=== PATIENT | female | born 1985 | race Caucasian/White ===

== ENCOUNTER 2016-12-14 05:20 | Day surgery (SDC) | payer OTHER ==
[2016-12-12 11:23] VITALS: BMI 29.4
[~2016-12-14 05:20] MED LIST: BUPIVACAINE HCL/PF 0.5% (5MG/ML) 10 ML VIAL IJ ONE
--- NOTE | 2016-12-14 09:47 | HP ---
Past Medical History - Primary Care Physician PCP:: Anh Lewis - Admission Chief Complaint: 31 yrs [id number] , Lmp 11/19/16 is admitted for surgery for Rt Ovarian cyst . History of Present Illness: h/o Left ovarian cyst known to her since 2914, it was small , so surgery was not recommended . last few months she is feeling increasingly some discomfort so she was evaluated for pelvic pain pelvic sono on 07/21/16 ut 7.7cm, Rt ovary has 1 cm echogenic focus,Dermoid cyst versus hemorrhagic cyst ws suspected. Lt ovary has no discreete abnormality . 3 Months later Repeat sono on 10/10/16 Rt ovary has 3.2x3.5cm hypoechoic mass with 9mm calcific density, suggestive of Dermoid cyst Lt ovary 8.4x1.4 cm small multiple folliclles are noted 10/25/16 Pelvic MRI : ut 7.3x4.5x5.5cm . Lt Ovary 3.1x2.8 cm Rt ovary 3.6x3.7x3.6 cm tounded Rt adnexal mass , no appreciable fat content, eccentric calcification seen , as per MRI findings are not diagnostic of Dermoid cyst contraception none History Source: Patient, Medical Record Limitations to Obtaining History: No Limitations - Past Medical History MEAT MOLDER: No: CVA, Migraine, Seizure Cardiovascular: No: HTN, Murmur Pulmonary: No: Asthma Gastrointestinal: Yes: Constipation. No: Gastritis, GERD Hepatobiliary: No: Cholelithiasis, Cholecystitis Renal/: No: UTI Reproductive: Yes: Other (MH 28-30 days regula, moderte flow, pain managed by pain meds Pap 07/2016 NILM h/o Abn pap : in 2014, Colposcopy) ...: 6 ...Para: 1 ...Term: 1 (primary c/section , 2005, failure to dilate ) ...Spon : 1 ...Induced : 4 ...LMP: 11/19/16 Heme/Onc: No: Anemia Infectious Disease: Yes: HIV (neg on 11/10/16), STD's (h/o Chlamydia pos in 2012 treated . , Last gc/ct on 11/10/16 Neg), Other (h/o trichomoniasis on 2012) Psych: Yes: Depression (currently not on any meds) Endocrine: No: Diabetes Mellitus, Hypothyroidism - Past Surgical History Past Surgical History: Yes: (2005) Hx Myomectomy: No Hx Transabdominal Cerclage: No - Advance Directives Advance Directives: Yes: Health Care Proxy - Smoking History Smoking history: Current some day smoker Have you smoked in the past 12 months: Yes - Alcohol/Substance Use Hx Alcohol Use: Yes (weekends) History of Substance Use: reports: Cocaine, Tranquilizers (h/o taking Ecstacy & Rosa Tabs for mood elevation) Date of Last Use: 10/20/16 (in past 1 month or 3 months ) - Social History History of Recent Travel: No Home Medications - Allergies Allergies/Adverse Reactions: Allergies Allergy/AdvReac Type Severity Reaction Status Date / Time No Known Allergies Allergy Verified 12/14/16 09:01 - Home Medications Home Medications: Ambulatory Orders NK [No Known Home Medication] 12/12/16 Physical Exam-DRAG DOWN Vital Signs: Vital Signs Temperature 97.3 F L 12/14/16 09:01 Pulse Rate 79 12/14/16 09:01 Respiratory Rate 20 12/14/16 09:01 Blood Pressure 106/62 12/14/16 09:01 O2 Sat by Pulse Oximetry (%) 96 12/14/16 08:51 Constitutional: Yes: Well Nourished, Anxious, Other (nervous) Eyes: Yes: WNL HENT: Yes: WNL, Normocephalic Neck: Yes: WNL Cardiovascular: Yes: WNL, Regular Rate and Rhythm Respiratory: Yes: WNL, CTA Bilaterally Gastrointestinal: Yes: WNL, Normal Bowel Sounds, Soft. No: Distention, Vomiting ...Rectal Exam: Yes: WNL Renal/: Yes: WNL. No: CVA Tenderness - Left, CVA Tenderness - Right Pelvis: Yes: WNL External Genitalia: Yes: Normal Internal Exam Deferred: Yes Vaginal Exam: Yes: Normal Cervix: Yes: Normal Uterus: Yes: Normal, Freely Moveable, Anteverted Adnexa: Normal: Bilateral, Not Palpable: Bilateral (clinically Rt adnexa not palpable ) Breast(s): Yes: WNL. No: Mass Musculoskeletal: Yes: WNL Extremities: Yes: WNL. No: Calf Tenderness Edema: No Integumentary: Yes: WNL, Incision (pfannensteil incision), Tattoos Neurological: Yes: WNL, Alert, Oriented ...Motor Strength: WNL Psychiatric: Yes: WNL, Alert, Oriented Labs: Laboratory Tests 12/12/16 12/12/16 12/12/16 11:26 11:26 11:26 WBC 12.6 H RBC 5.11 Hgb 14.0 Hct 42.8 MCV 83.7 MCH 27.3 MCHC 32.7 Plt Count 260 Neutrophils % 79.3 Lymphocytes % 13.9 Monocytes % 5.5 Eosinophils % 1.0 Basophils % 0.3 INR 1.15 H Sodium 140 Potassium 4.4 Chloride 105 Carbon Dioxide 29 BUN 13 Creatinine 0.5 L Random Glucose 82 Calcium 9.0 Total Bilirubin 0.5 AST 11 L ALT 16 Beta HCG, Quant < 1.0 Urine Protein Urine Glucose (UA) 12/12/16 11:26 WBC RBC Hgb Hct MCV MCH MCHC Plt Count Neutrophils % Lymphocytes % Monocytes % Eosinophils % Basophils % INR Sodium Potassium Chloride Carbon Dioxide BUN Creatinine Random Glucose Calcium Total Bilirubin AST ALT Beta HCG, Quant Urine Protein Negative Urine Glucose (UA) Negative Problem List - Problem (1) Right ovarian cyst Code(s): N83.201 - UNSPECIFIED OVARIAN CYST, RIGHT SIDE Assessment/Plan 31 yrs , previous c/section with Rt Ovarian cyst suspected Dermoid cyst Plan Laproscopic Rt ovarian cystectomy ., possible Rt Salpingoopherectomy , possible exp lap if necessary pt is aware of r/b/a . ,
[2016-12-14] MEDS ORDERED: ONDANSETRON 4 MG/2 ML VIAL IVPUSH PRN (10:44)
[2016-12-14] MEDS ORDERED: oxyCODONE HCL 5 MG TABLET PO PRN (10:44)
[2016-12-14] MEDS ORDERED: PROMETHAZINE HCL 25 MG/1 ML VIAL IVPUSH PRN (10:44)
[2016-12-14] MEDS ORDERED: LACTATED RINGERS SOLUTION 1,000 ML IV SCH (10:45)
[2016-12-14] MEDS ORDERED: MIDAZOLAM HCL 2 MG/2 ML SINGLE DOSE VIAL ONE (10:57)
[2016-12-14] MEDS ORDERED: PROPOFOL 20 ML ONE (11:02)
[2016-12-14] MEDS ORDERED: ROCURONIUM BROMIDE 50 MG/5 ML VIAL ONE (11:02)
[2016-12-14] MEDS ORDERED: DEXAMETHASONE SOD PHOSPHATE 4 MG/1 ML VIAL ONE (11:12)
[2016-12-14] MEDS ORDERED: LIDOCAINE HCL/PF 2% SDV 5ML VIAL ONE (11:12)
[2016-12-14] MEDS ORDERED: KETOROLAC TROMETHAMINE 30 MG/1 ML VIAL ONE (11:12)
[2016-12-14] MEDS ORDERED: BUPIVACAINE HCL/PF 0.5% (5MG/ML) 10 ML VIAL ONE (11:26)
[2016-12-14] MEDS ORDERED: BUPIVACAINE HCL/PF 0.5% (5MG/ML) 10 ML VIAL IJ ONE (12:43)
[2016-12-14] MEDS ORDERED: NEOSTIGMINE METHYLSULFATE 0.5 MG/ML - 10 ML MDV ONE (12:43)
[2016-12-14] MEDS ORDERED: GLYCOPYRROLATE 0.2 MG/1 ML VIAL ONE (12:44)
[2016-12-14] MEDS ORDERED: IBUPROFEN 600 MG TABLET (FP) PO PRN (12:58)
[2016-12-14] MEDS ORDERED: ACETAMINOPHEN 325 MG TABLET (FP) PO PRN (12:58)
--- NOTE | 2016-12-14 13:13 | OP ---
Operative Note - Note: Operative Date: 12/14/16 Pre-Operative Diagnosis: Right ovarian cyst possible Dermoid cyst Operation: Laproscopic Rt Ovarian cystectomy Findings: Uterus normal Lt ube & ovary normal Rt ovary includes 3.6 x 3.7 cm cyst , while sepraring cyst wall cyst was punctured , slimy yellowish material drained . cyst wall seprated from ovarian cortex , irrigation was done with copious ampunt of saline rest of ovarian cortex normal . Surgeon: Anh Lewis Life Enrichment Assistant: Nikki Bird Anesthesiologist/PHARMACY STUDENT: Jenny Anand MD Anesthesia: General Specimens Removed: portion of Rt cyst wall Drains, Volume Out (mls): 100 (daniels jomar color ) Fluid Volume Replaced (mls): 1,000 (iv ancef 1 gm)
[2016-12-14] MEDS ORDERED: CLINDAMYCIN PHOSPHATE 600 MG/4 ML VIAL ONE (14:15)
[2016-12-14] MEDS ORDERED: oxyCODONE HCL 5 MG TABLET ONE (15:42)
[2016-12-14 16:22] VITALS: TEMP 97.8
[2016-12-14] MEDS ORDERED: IBUPROFEN 600 MG TABLET (FP) PO ONE (16:50)
[2016-12-14 17:50] VITALS: BP 120/70; PULSE 88
--- NOTE | 2016-12-15 13:59 | PATH ---
Surgical Pathology Report Patient Name: JULIANA ALMONTE [facility]. Rec. #: [id number] /Age/Gender: 1985 (Age: 31) / F Account: [id number] Location: [facility] Taken: 12/14/2016 Received: 12/14/2016 Reported: 12/15/2016 Physicians: Anh Lewis M.D. Specimen(s) Received PORTION OF RIGHT CYST WALL Clinical History Right ovarian cyst Cyst contents were slimy yellowish fluid, r/o dermoid cyst Final Diagnosis OVARY, RIGHT, CYST WALL, CYSTECTOMY: MATURE CYSTIC TERATOMA AND SEROUS CYSTADENOMA. Electronically Signed Saeed Roberto M.D. Gross Description Received in formalin labeled "portion of right cyst wall" is a 3.6 x 2.8 x 1.1 cm focally disrupted cyst. The outer surface of the cyst is pink-tariq with a 0.9 cm in length attached portion of an ovary. The inner lining of the cyst is smooth. No excrescences are identified. Also received within the same container is a 1.5 x 1.2 x 0.3 cm aggregate of tariq-pink soft tissue fragments. The cyst is serially sectioned and the specimen is entirely submitted in 5 cassettes as follows: 1- portion of ovary [id number]-[id number] submitted cyst; 5-separately received soft tissue fragments. 12/14/201612/14/2016
--- NOTE | 2016-12-15 15:33 | OP ---
DATE OF OPERATION: 12/14/2016 PREOPERATIVE DIAGNOSIS: Right ovarian cyst, possible dermoid cyst. POSTOPERATIVE DIAGNOSIS: Right ovarian cyst, possible dermoid cyst, pending pathology. OPERATION DONE: Laparoscopic right ovarian cystectomy. SURGEON: Sanchez Nuñez MD TAX MANAGER PUBLIC: Nikki Bird DO ANESTHESIOLOGIST: Jenny Anand MD ANESTHESIA: General. FINDINGS: This is a 31-year-old 6, para 1-0-5-1, LMP November 17, 2016, who was diagnosed by sonogram and by MRI to have a right ovarian cyst 3.6 x 3.7 cm, possible dermoid suspected with a calcification. test was negative. Beta hCG negative. DESCRIPTION OF PROCEDURE: The patient was taken to the operating room table and general anesthesia was given. She was placed in the modified lithotomy position. The abdomen, pubis, perineum and vagina were painted with Betadine and draped in the usual manner. A pelvic examination was done. The uterus was anteverted, normal size. The cervix was posterior. The adnexa could not be palpated. A weighted speculum was put in. The anterior lip of the cervix was held with a single- tooth tenaculum. The uterine cavity was sounded. It was 7 cm. The Zumi cannula was introduced into the uterine cavity. Then, the tenaculum and weighted speculum were removed. A Mathis catheter was placed. The position of the stirrups was readjusted, and the patient was placed in the supine position. Gloves were changed and we proceeded with a pelviscopy. A small incision was made into the umbilicus. A 5-mm trocar and cannula were introduced and CO2 was insufflated into the peritoneal cavity. Then, from the Right lower quadrant, another 5-mm trocar and cannula were introduced and the right- side ovarian cyst was seen. The left-side ovary and tube were normal. Then, a 11-mm trocar and cannula were introduced from the right lower quadrant. The uterus was normal. The cul-de-sac was normal. The left adnexa, tube and ovary were normal and the right tube was normal. The ovary was held with the ovarian ligament and was brought up, and the junction between the ovarian cyst and the rest of the cortex was found. In the antimesenteric border, an incision was made with cautery and with EndoShears. A plane was obtained between the ovarian cortex and the cyst. We tried to separate the cyst but while the cyst from the ovarian cortex, an accidental puncture occurred. Slimy, yellowish fluid came out which was drained. An attempt to separate the cyst wall was made by holding it with a [place] grasper and another blunt grasper. The cyst wall was from the cortex. Then, with a LigaSure, the cyst wall was cut off and irrigation was done. A bleeding point was cauterized with the LigaSure. Hemostasis was verified. Then, copious irrigation with normal saline was done, cul-de-sac and around the colon and bowels, gutters . The cyst wall was sent for pathologic examination. Then, the left lower quadrant trocar was removed and the Herb-Faiza device was introduced. to guide needle insertion with . Vicryl 0 suture & the peritoneum and the rectus sheath was closed with Vicryl 0 suture. The Herb-Faiza device was then removed. The rest of the trocar, the right lower quadrant trocar was removed. Gas was removed from the abdominal cavity. The umbilical trocar was removed. Marcaine was infiltrated in all three incisions. Then, subcutaneous tissue was approximated with 4-0 Biosyn, and the skin was approximated with Steri-Strips. Band-Aid dressing was applied. The Zumi cannula was removed. Urine output was 100 mL, and IV Ancef 1 g was given. SANCHEZ NUÑEZ M.D. [id number] MTDD
== END 2016-12-14 17:00 | disposition home or self-care (01) ==
LOC: JASU-SURG 05:20
PROVIDERS: ATTEND Obstetrics & Gynecology
PROC: 0UB04ZZ Excision of Right Ovary, Percutaneous Endoscopic Approach (ICD-10-PCS; principal; 2016-12-14 09:30)
DX: N83.201 Unspecified ovarian cyst, right side (principal)
CPT/HCPCS: 88307-TC; 94760

== ENCOUNTER 2018-01-13 19:45 | Emergency (ER) | payer OTHER ==
[2018-01-13 20:09] VITALS: BP 117/79; PULSE 93; TEMP 98.4; BMI 34.5
--- NOTE | 2018-01-13 20:30 | PDOC ---
History of Present Illness - General History Source: Patient Exam Limitations: No Limitations - History of Present Illness Initial Comments: 01/13/18 21:10 The patient is a 32-year-old female with past medical history significant for anxiety presents to the emergency department with swelling to the R. eye. The patient reports a history of intermittent swelling to the lips, eyes and lower extremity with unknown etiology, that resolves by itself. The patient states she had an episode of edema to the R. eye today, with mild relief with 25 mg x2 of Benadryl. Denies the use of new cream, soap, medication, pus or crusting around the eyes. Denies swelling to the lips or throat. The patient reports an additional concern of missed menstrual cycle; patient states she is 5 days late and is concerned that she might be . Allergies: NKA. 01/13/18 22:09 <Adriana Calvo - Last Filed: 01/13/18 22:09> <Magda Monterroso - Last Filed: 01/14/18 03:31> - General Chief Complaint: Allergic Reaction Stated Complaint: ALLERGIC REACTION/REQUESTS BLOOD TEST Time Seen by Provider: 01/13/18 19:48 Past History <Adriana Calvo - Last Filed: 01/13/18 22:09> - Past Medical History Anemia: No Asthma: No Cancer: No Cardiac Disorders: No CVA: No COPD: No CHF: No Dementia: No Diabetes: No GI Disorders: No Disorders: No HTN: No Hypercholesterolemia: No Liver Disease: No Seizures: No Thyroid Disease: No Other medical history: ANXIETY - Suicide/Smoking/Psychosocial Hx Smoking History: Current some day smoker Have you smoked in the past 12 months: Yes Information on smoking cessation initiated: Yes 'Breaking Loose' booklet given: 12/12/16 Hx Alcohol Use: Yes Drug/Substance Use Hx: Yes (COCAINE 2 DAYS AGO) Substance Use Type: None Hx Substance Use Treatment: Yes ([id number]) <Magda Monterroso - Last Filed: 01/14/18 03:31> - Past Medical History Allergies/Adverse Reactions: Allergies Allergy/AdvReac Type Severity Reaction Status Date / Time No Known Allergies Allergy Verified 01/13/18 19:47 Home Medications: Ambulatory Orders Lamotrigine [Lamictal] 25 mg PO DAILY 01/13/18 Review of Systems - Review of Systems Able to Perform ROS?: Yes Comments:: 01/13/18 21:01 CONSTITUTIONAL: Absent: fever, no chills, no fatigue EYES: (+) Swelling to the R. eyelid. Absent: visual changes ENT: Absent: ear pain, no sore throat CARDIOVASCULAR: Absent: chest pain, no palpitations RESPIRATORY: Absent: cough, no SOB GI: Absent: abdominal pain, no nausea, no vomiting, no constipation, no diarrhea GENITOURINARY: Absent: dysuria, no frequency, no hematuria MUSKULOSKELETAL: Absent: back pain, no arthralgia, no myalgia SKIN: Absent: rash NEURO: Absent: headache <Adriana Calvo - Last Filed: 01/13/18 22:09> *Physical Exam - Vital Signs Last Vital Signs Temp Pulse Resp BP Pulse Ox 98.4 F 93 H 16 117/79 100 01/13/18 19:49 01/13/18 19:49 01/13/18 19:49 01/13/18 19:49 01/13/18 19:49 - Physical Exam Comments: 01/13/18 21:01 GENERAL: The patient is awake, alert, and fully oriented, in no acute distress. HEAD: Normal with no signs of trauma. EYES: (+) moderate upper eyelid edema without erythema, tenderness, or palpable masses. Mild lower lid edema, without erythema or tenderness. Conjunctiva nonerythematous, no discharge evident. Remainder of the eye exam normal: No masses or discharges noted along the eyelid margins. Pupils equal, round and reactive to light, extraocular movements intact, sclera anicteric, conjunctiva clear with no pallor. ENT: Tongue/lips: no lip or tongue edema.Ears normal, nares patent, oropharynx clear without exudates. Moist mucous membranes. NECK: No stridor noted. Normal range of motion, supple without lymphadenopathy, JVD, or masses. LUNGS: Breath sounds equal, clear to auscultation bilaterally. No wheeze/ crackles. HEART: Regular rate and rhythm, normal S1 and S2 without murmur or rub. ABDOMEN: Soft/nontender/nondistended. BS wnl. No guarding or rebound. No palpable masses. No hepatosplenomegaly. EXTREMITIES: Normal range of motion, no edema. No clubbing or cyanosis. No cords, erythema, or tenderness. SKIN: Warm, Dry, normal turgor, no rashes or lesions noted. <Adriana Calvo - Last Filed: 01/13/18 22:09> - Vital Signs Last Vital Signs Temp Pulse Resp BP Pulse Ox 98.4 F 93 H 16 117/79 100 01/13/18 19:49 01/13/18 19:49 01/13/18 19:49 01/13/18 19:49 01/13/18 19:49 <Magda Monterroso - Last Filed: 01/14/18 03:31> ED Treatment Course - ADDITIONAL ORDERS Additional order review: Laboratory Results 01/13/18 20:21 Urine HCG, Qual Negative <Adriana Calvo - Last Filed: 01/13/18 22:09> Medical Decision Making - Medical Decision Making Documentation has been prepared under my direction and personally reviewed by me in its entirety. I attest that this documented accurately reflects all work, treatment, procedures and medical decision making performed by me. As noted above, this 32-year-old woman with a history of intermittent areas of ALLERGIC reaction of unclear etiology presents with 1 day history of right periorbital edema. No evidence of new topical or ingested allergens. No discharge/crusting or erythema which would suggest infectious etiology. Patient has not had any lip or tongue edema; she denies difficulty swallowing or breathing. Patient states that she has had referral to an full roll inspector but has not yet seen the specialist, stating that she thought that the cause of the swelling episodes would not be able to be found. She is advised that angioedema can occur intermittently, can be investigated with blood tests and that she should follow-up with the full roll inspector. She states that she understood this and will now follow up. Also, the patient requested "blood test " because, despite her periods being very normal, she is 5 days of slight with current menstruation. Patient was informed that, because serum test would require sending the specimen to [facility], there would be a few hour wait for the results. The patient states that, although her home urine test was negative, she would request a repeat urine here. Exam as noted. PGU negative. Patient will be discharged with instructions to continue Benadryl as needed and cool compresses to her right eye swelling. She should follow-up with her full roll inspector as previously referred. He should come back to the emergency room if she has any lip/tongue edema or if she experiences difficulty swallowing/ breathing. She will repeat home test in 1 week and follow-up for serum test or other workup with her outcomes specialist as needed. <Magda Monterroso - Last Filed: 01/14/18 03:31> *DC/Admit/Observation/Transfer - Attestations Scribe Attestion: 01/13/18 21:02 Documentation prepared by Adriana Calvo, acting as medical transcriber for Magda Monterroso MD. <Adriana Calvo - Last Filed: 01/13/18 22:09> <Magda Monterroso - Last Filed: 01/14/18 03:31> Diagnosis at time of Disposition: Allergic reaction Qualifiers: Encounter type: initial encounter Qualified Code(s): T78.40XA - Allergy, unspecified, initial encounter - Discharge Dispostion Disposition: HOME Condition at time of disposition: Stable - Referrals Referrals: Arely Mendoza MD [Primary Care Provider] - - Patient Instructions Printed Discharge Instructions: DI for Eye Allergic Reaction Additional Instructions: cool compresses to swollen right eye continue Benadryl as needed return or see your doctor if you see discharge coming from on eye Return to ER immediately if you have lip/tongue swelling or difficulty swallowing/breathing No work today Followup with full roll inspector as previously advised - Post Discharge Activity Forms/Work/School Notes: Back to Work
== END 2018-01-13 21:05 | disposition home or self-care (01) ==
LOC: FER 19:45
DX: T78.40XA Allergy, unspecified, initial encounter (principal)
CPT/HCPCS: 84703; 99281-25

== ENCOUNTER 2018-08-05 14:50 | Emergency (ER) | payer OTHER ==
[2018-08-05 15:01] VITALS: BP 121/70; PULSE 88; TEMP 98.2; BMI 36.1
--- NOTE | 2018-08-05 15:01 | PDOC ---
Rapid Medical Evaluation Time Seen by Provider: 08/05/18 14:58 Medical Evaluation: Allergies Allergy/AdvReac Type Severity Reaction Status Date / Time No Known Allergies Allergy Verified 01/13/18 19:47 08/05/18 14:58 I have performed a brief in-person evaluation of this patient. The patient presents with a chief complaint of:neck pain x several days. No trauma Pertinent physical exam findings:unremarkable I have ordered the following:nothing The patient will proceed to the ED for further evaluation. Discharge Disposition - Diagnosis Neck pain - Referrals - Patient Instructions - Post Discharge Activity
[2018-08-05] MEDS ORDERED: KETOROLAC TROMETHAMINE 60 MG/2 ML VIAL IM ONE (15:43)
[2018-08-05] MEDS ORDERED: KETOROLAC TROMETHAMINE 60 MG/2 ML VIAL ONE (15:45)
--- NOTE | 2018-08-05 15:46 | PDOC ---
History of Present Illness - General Chief Complaint: Head/Neck problem Stated Complaint: NECK PAIN Time Seen by Provider: 08/05/18 14:58 - History of Present Illness Initial Comments: 08/05/18 15:44 32-year-old female with a past medical history significant for bipolar depression presents for evaluation of left-sided neck pain 2 weeks without radicular or systemic symptoms. Past History - Past Medical History Allergies/Adverse Reactions: Allergies Allergy/AdvReac Type Severity Reaction Status Date / Time No Known Allergies Allergy Verified 08/05/18 15:43 Home Medications: Ambulatory Orders Lamotrigine [Lamictal] 25 mg PO DAILY 01/13/18 Cyclobenzaprine HCl [Flexeril 10 mg] 10 mg PO HS PRN #10 tablet 08/05/18 Ibuprofen [Motrin -] 600 mg PO TID #30 tablet 08/05/18 Anemia: No Asthma: No Cancer: No Cardiac Disorders: No CVA: No COPD: No CHF: No Dementia: No Diabetes: No GI Disorders: No Disorders: No HTN: No Hypercholesterolemia: No Liver Disease: No Seizures: No Thyroid Disease: No - Suicide/Smoking/Psychosocial Hx Smoking History: Unknown if ever smoked Have you smoked in the past 12 months: Yes 'Breaking Loose' booklet given: 12/12/16 Hx Alcohol Use: Yes Drug/Substance Use Hx: Yes (COCAINE 2 DAYS AGO) Substance Use Type: None Hx Substance Use Treatment: Yes ([id number]) Review of Systems - Review of Systems Constitutional: No: Fever Musculoskeletal: Yes: Muscle Pain, Neck Pain *Physical Exam - Vital Signs Last Vital Signs Temp Pulse Resp BP Pulse Ox 98.2 F 88 20 121/70 96 08/05/18 14:57 08/05/18 14:57 08/05/18 14:57 08/05/18 14:57 08/05/18 14:57 - Physical Exam Comments: 08/05/18 15:44 Cervical spine skin color and temperature are normal. Range of motion is decreased in all planes. There is no midline tenderness. Tenderness and spasm felt about the left paracervical musculature. No right-sided tenderness. 5 out of 5 strength in bilateral upper extremities without gross sensorimotor deficits negative Spurling maneuver she is neurovascularly intact. No gross sensorimotor deficits. Medical Decision Making - Medical Decision Making 04/22/19 15:45 Patient reassures me there is no chance of . I will treat her in the emergency room with Toradol send her home with Motrin and Flexeril have her follow-up with orthospine. *DC/Admit/Observation/Transfer Diagnosis at time of Disposition: Neck pain, Cervical strain - Discharge Dispostion Disposition: HOME Condition at time of disposition: Stable Decision to Admit order: No - Prescriptions Prescriptions: Cyclobenzaprine HCl [Flexeril 10 mg] 10 mg PO HS PRN #10 tablet PRN Reason: Muscle Spasms Ibuprofen [Motrin -] 600 mg PO TID #30 tablet - Referrals Referrals: Ronny Shipley MD [Staff Physician] - - Patient Instructions Additional Instructions: Please start the Motrin tomorrow. He will given a dose of a long-acting anti- inflammatory in the emergency room today. Muscle relaxer you may start tonight its one tablet before bedtime and will make you sleepy. Return to the emergency room for worsening symptoms and follow-up with orthopedic spine surgery in 1-2 days for further evaluation and treatment options. - Post Discharge Activity
== END 2018-08-05 16:09 | disposition home or self-care (01) ==
LOC: JERFT 14:50
PROC: 3E0233Z Introduction of Anti-inflammatory into Muscle, Percutaneous Approach (ICD-10-PCS; principal; 2018-08-05)
DX: S16.1XXA Strain of muscle, fascia and tendon at neck level, initial encounter (principal); M62.838 Other muscle spasm; X58.XXXA Exposure to other specified factors, initial encounter; Y93.89 Activity, other specified; Y92.89 Other specified places as the place of occurrence of the external cause; Y99.8 Other external cause status; F19.10 Other psychoactive substance abuse, uncomplicated
CPT/HCPCS: 96372; 99281-25

== ENCOUNTER 2018-10-26 13:31 | Emergency (ER) | payer OTHER ==
[2018-10-26 13:39] VITALS: BP 123/67; PULSE 80; TEMP 98.3; BMI 36.6
--- NOTE | 2018-10-26 13:54 | PDOC ---
History of Present Illness - General Chief Complaint: Pain Stated Complaint: WRIST PAIN AND FOOT PAIN Time Seen by Provider: 10/26/18 13:45 History Source: Patient Exam Limitations: No Limitations - History of Present Illness Initial Comments: 10/26/18 13:54 c/o pain and swelling to right wrist. States onset was a few weeks ago and is progressively worsened 10/26/18 14:10 Occurred: reports: other (c/o pain x 3 weeks) Severity: reports: moderate Pain Location: reports: upper extremity (wrist ) Modifying Factors: improves with: None Past History - Travel Traveled outside of the country in the last 30 days: No Close contact w/someone who was outside of country & ill: No - Past Medical History Allergies/Adverse Reactions: Allergies Allergy/AdvReac Type Severity Reaction Status Date / Time No Known Allergies Allergy Verified 10/26/18 13:35 Home Medications: Ambulatory Orders Lamotrigine [Lamictal] 25 mg PO DAILY 01/13/18 Cyclobenzaprine HCl [Flexeril 10 mg] 10 mg PO HS PRN #10 tablet 08/05/18 Cyclobenzaprine HCl [Flexeril 10 mg] 10 mg PO HS PRN #10 tablet 08/05/18 Ibuprofen [Motrin -] 600 mg PO TID #30 tablet 08/05/18 Ibuprofen [Motrin -] 600 mg PO TID #30 tablet 08/05/18 Naproxen [Naprosyn -] 500 mg PO BID #30 tablet 10/26/18 Anemia: No Asthma: No Cancer: No Cardiac Disorders: No CVA: No COPD: No CHF: No Dementia: No Diabetes: No GI Disorders: No Disorders: No HTN: No Hypercholesterolemia: No Liver Disease: No Seizures: Yes (depression anxiety) Thyroid Disease: No - Suicide/Smoking/Psychosocial Hx Smoking History: Current some day smoker Have you smoked in the past 12 months: Yes Number of Cigarettes Smoked Daily: 5 Information on smoking cessation initiated: No 'Breaking Loose' booklet given: 12/12/16 Hx Alcohol Use: Yes Drug/Substance Use Hx: Yes (COCAINE 2 DAYS AGO) Substance Use Type: None Hx Substance Use Treatment: Yes ([id number]) Review of Systems - Review of Systems Able to Perform ROS?: Yes Is the patient limited [place] proficient: Yes Constitutional: Yes: Symptoms Reported, See HPI. No: Fever, Malaise HEENTM: No: Symptoms Reported Musculoskeletal: Yes: Symptoms Reported, See HPI, Joint Pain, Joint Swelling, Muscle Pain (right wrist at dorsal aspect and left foot dorsum) All Other Systems: Reviewed and Negative *Physical Exam - Vital Signs Last Vital Signs Temp Pulse Resp BP Pulse Ox 98.3 F 80 18 123/67 97 10/26/18 13:36 10/26/18 13:36 10/26/18 13:36 10/26/18 13:36 10/26/18 13:36 - Physical Exam General Appearance: Yes: Nourished, Appropriately Dressed, Apparent Distress HEENT: positive: DESMOND, TMs Normal Neck: positive: Supple. negative: Tender Respiratory/Chest: positive: Lungs Clear Gastrointestinal/Abdominal: positive: Soft. negative: Tender Musculoskeletal: positive: Normal Inspection Extremity: positive: Normal Capillary Refill, Normal Inspection, Normal Range of Motion (with strong flexion and extension however with extreme flexion and supination patient has mild reproduce pain at carpal tunnel area. No maneuver is positive with mild numbness at fingertips but not severe), Tender Integumentary: positive: Normal Color, Dry, Warm Neurologic: positive: flatbed [employer] II-XII NML intact, Fully Oriented, Alert, Normal Mood/ Affect, Normal Response, Motor Strength 5/5 Progress Note - Progress Note Progress Note: Mild tendinitis, will treat with NSAIDs *DC/Admit/Observation/Transfer Diagnosis at time of Disposition: Tendonitis - Discharge Dispostion Disposition: HOME Condition at time of disposition: Stable Decision to Admit order: No - Prescriptions Prescriptions: Naproxen [Naprosyn -] 500 mg PO BID #30 tablet - Referrals Referrals: Arely Mendoza MD [Primary Care Provider] - Ronny Rodriguez MD [Staff Physician] - - Patient Instructions Printed Discharge Instructions: DI for Tendinitis Additional Instructions: Rest, ice to area on and off for 15 minutes 4-6 times a day Avoid heavy lifting or exercise until pain and swelling is resolved or until further directed Keep area highly elevated to reduce swelling Use splints/[place] wrap as directed Followup with orthopedist in one to 2 days if not improving, if significantly improved may wait one week for followup with orthopedist May use ibuprofen every 6 hours as needed for pain - Post Discharge Activity Forms/Work/School Notes: Back to Work
== END 2018-10-26 14:14 | disposition home or self-care (01) ==
LOC: JERFT 13:31
DX: M77.9 Enthesopathy, unspecified (principal)
CPT/HCPCS: 99281-25

== ENCOUNTER 2019-05-31 15:30 | Emergency (ER) | payer OTHER ==
--- NOTE | 2019-05-31 15:37 | PDOC ---
Attending Attestation - Resident Resident Name: GarzaRonny - ED Attending Attestation I have performed the following: I have examined & evaluated the patient, The case was reviewed & discussed with the resident, I agree w/resident's findings & plan, Exceptions are as noted - HPI HPI: 05/31/19 16:30 Submandibular pain and swelling for several days. No dental pain. No redness or warmth of the face. No fever or chills - Physicial Exam PE: 05/31/19 16:30 Alert no acute distress. Vital signs normal. Afebrile Enlarged right submandibular salivary gland palpated, tender. No mass or erythema oropharynx. No dental caries noted. Neck otherwise supple without adenopathy. - Medical Decision Making 05/31/19 16:31 Assessment: Salivary gland stone with obstruction Plan: Symptomatic treatment, recheck immediately if fever, redness, or warmth of the face. Otherwise follow-up ENT specialist if no improvement 2 to 3 days. Fully ambulatory in no severe pain at discharge to follow-up as directed
[2019-05-31 15:51] VITALS: BP 123/78; PULSE 99; TEMP 97.8; BMI 36.3
--- NOTE | 2019-05-31 16:12 | PDOC ---
History of Present Illness <Anand Crump - Last Filed: 05/31/19 16:26> - General History Source: Patient Exam Limitations: No Limitations - History of Present Illness Initial Comments: 33F c/o 2 days of right jaw pain with development of tender lump under the jaw. no difficulty swallowing, eating, drinking, breathing, no f/c, no toothpain, no n/v, cp/sob, no ear pain, no recent illness <GregRonny - Last Filed: 06/10/19 05:37> - General Chief Complaint: Pain Stated Complaint: RT JAW PAIN Time Seen by Provider: 05/31/19 15:37 Past History <Anand Crump - Last Filed: 05/31/19 16:26> - Past Medical History Anemia: No Asthma: No Cancer: No Cardiac Disorders: No CVA: No COPD: No CHF: No Dementia: No Diabetes: No GI Disorders: No Disorders: No HTN: No Hypercholesterolemia: No Liver Disease: No Seizures: Yes (depression anxiety) Thyroid Disease: No - Psycho Social/Smoking Cessation Hx Smoking History: Never smoked Have you smoked in the past 12 months: No Number of Cigarettes Smoked Daily: 5 Information on smoking cessation initiated: No 'Breaking Loose' booklet given: 12/12/16 Hx Alcohol Use: No Drug/Substance Use Hx: No Substance Use Type: None Hx Substance Use Treatment: Yes ([id number]) <GregRonny - Last Filed: 06/10/19 05:37> - Past Medical History Allergies/Adverse Reactions: Allergies Allergy/AdvReac Type Severity Reaction Status Date / Time No Known Allergies Allergy Verified 05/31/19 15:30 Home Medications: Ambulatory Orders Lamotrigine [Lamictal] 200 mg PO DAILY 01/13/18 Ibuprofen 600 mg PO TID #15 tablet 05/31/19 Review of Systems - Review of Systems Able to Perform ROS?: Yes Comments:: CONSTITUTIONAL: Denies F / C HEENT: endorses right jaw pain and tender lump. Denies headache, changes in vision / hearing, sore throat, RESP: Denies SOB, cough CARD: Denies chest pain GI: Denies N / V / D, abdominal pain, inability to tolerate PO : Denies dysuria SKIN: Denies rashes NEURO: Denies numbness, tingling, weakness MSK: Denies back pain Is the patient limited [place] proficient: No <Ronny Garza - Last Filed: 06/10/19 05:37> *Physical Exam - Vital Signs Last Vital Signs Temp Pulse Resp BP Pulse Ox 97.8 F 99 H 20 123/78 99 05/31/19 15:30 05/31/19 15:30 05/31/19 15:30 05/31/19 15:30 05/31/19 15:30 <Anand Crump - Last Filed: 05/31/19 16:26> - Vital Signs Last Vital Signs Temp Pulse Resp BP Pulse Ox 97.8 F 99 H 20 123/78 99 05/31/19 15:30 05/31/19 15:30 05/31/19 15:30 05/31/19 15:30 05/31/19 15:30 - Physical Exam GEN: Well appearing, NAD, comfortable. AAOx3. HEENT: NC/AT, EOMI, PERRL. No facial asymmetry. Moist mucous membranes, no dental carries, no buccal TTP. +TTP of the right angle of jaw; there is a firm area in the right submandibular region w/o overlying skin changes or erythema. Normal voice. Supple neck w/ FROM. CV: S1/S2, RRR, no m/r/g LUNG: CTAB, no wheezes, crackles, rales, rhonchi. GI: Soft, ndnt, +BS, no guarding, no rebound. No masses. Neg CVAT b/l. MSK: 2+ distal pulses. No LE edema. No obvious deformities of all extremities. SKIN: Warm, dry, no rashes appreciated. PSYCH: Normal mood and affect. NEURO: Moving all extremities well. <Ronny Garza - Last Filed: 06/10/19 05:37> Medical Decision Making - Medical Decision Making 05/31/19 16:10 33F c/o 2 days of right jaw pain and lump; +TTP submandibular firmness no skin changes. Airway protected. DDx - likely submandibular gland block; unlikely SPECIALTY PERSON, paroditis, malignancy. - pain ctrl - dc w/ pcp f/u <Ronny Garza - Last Filed: 06/10/19 05:37> Discharge - Discharge Information Problems reviewed: Yes - Admission No <Anand Crump - Last Filed: 05/31/19 16:26> - Discharge Information Problems reviewed: Yes <Ronny Garza - Last Filed: 06/10/19 05:37> - Discharge Information Clinical Impression/Diagnosis: Salivary gland obstruction Condition: Stable Disposition: HOME - Additional Discharge Information Prescriptions: Ibuprofen 600 mg PO TID #15 tablet - Follow up/Referral Referrals: Maikel Cortez MD [Staff Physician] - 3 days - Patient Discharge Instructions Additional Instructions: Blocked salivary gland Hydration, warm compresses, sucking on hard sour candies such as lemon drops may help to resolve the blockage. Ibuprofen for pain as prescribed ENT specialist if no relief 2 to 3 days.
[2019-05-31] MEDS ORDERED: ACETAMINOPHEN 500 MG TABLET (FP) PO ONE (16:19)
[2019-05-31] MEDS ORDERED: IBUPROFEN 400 MG TABLET (FP) PO ONE ×2 (16:25→16:32)
[2019-05-31] MEDS ORDERED: ACETAMINOPHEN 325 MG TABLET (FP) ONE (16:32)
== END 2019-05-31 16:36 | disposition home or self-care (01) ==
LOC: FER 15:30
DX: K11.8 Other diseases of salivary glands (principal); F41.8 Other specified anxiety disorders
CPT/HCPCS: 99282-25

== ENCOUNTER 2020-12-17 18:17 | Emergency (ER) | payer OTHER ==
[2020-12-17 18:36] VITALS: BP 101/66; PULSE 84; TEMP 98; BMI 27.4
== END 2020-12-17 20:41 | disposition home or self-care (01) ==
LOC: JER 18:17 → JERFT 18:17
DX: Z00.00 Encounter for general adult medical examination without abnormal findings (principal)
CPT/HCPCS: 84703; 99283-25

== ENCOUNTER 2022-11-08 14:40 | Emergency (ER) | payer OTHER ==
[2022-11-08 15:06] VITALS: BP 112/68; PULSE 104; RESP 17; TEMP 98.3; BMI 32.8
== END 2022-11-08 17:52 | disposition home or self-care (01) ==
LOC: JER 14:40
DX: O99.611 Diseases of the digestive system complicating pregnancy, first trimester (principal); K92.1 Melena; Z3A.10 10 weeks gestation of pregnancy
CPT/HCPCS: 99283-25

== ENCOUNTER 2023-06-13 13:50 | Emergency (ER) | payer OTHER ==
[2023-06-13 13:59] VITALS: BP 99/51; PULSE 91; RESP 18; TEMP 98.5; BMI 32.8
[2023-06-13 15:46] LABS: PH,URINE 5.5 (5.0-8.0); URINE APPEARANCE CLEAR; URINE BILIRUBIN NEGATIVE (NEGATIVE); URINE COLOR YELLOW; URINE GLUCOSE (UA) NEGATIVE (NEGATIVE); URINE KETONE NEGATIVE (NEGATIVE); URINE LEUK ESTERASE NEGATIVE (NEGATIVE); URINE NITRITE NEGATIVE (NEGATIVE); URINE PROTEIN NEGATIVE (NEGATIVE); URINE UROBILINOGEN 0.2 mg/dL (0.2-1.0)
[2023-06-13] MEDS ORDERED: ACETAMINOPHEN INJECTION 100 ML IVPB ONE (15:46)
[2023-06-13] MEDS: SODIUM CHLORIDE 0.9% 500 ML INFUS.BAG IV ONE (16:08)
[2023-06-13] MEDS: ACETAMINOPHEN 1000 MG/100 ML BAG IVPB ONE (16:08)
[2023-06-13 16:20] LABS: BASO % 0.9 % (0-2.0); EOS % 2.1 % (0-4.5); HEMATOCRIT 39.4 % (32.4-45.2); HEMOGLOBIN 13.2 GM/dL (10.7-15.3); LYMPH % 16.5 % (8-40); MCH 27.4 pg (25.7-33.7); MCHC 33.6 g/dl (32.0-36.0); MEAN CELL VOLUME 81.5 fl (80-96); MEAN PLT VOLUME 7.8 fl (7.5-11.1); MONO % 4.8 % (3.8-10.2); NEUT % 75.7 % (42.8-82.8); PLATELET COUNT 321 10^3/uL (134-434); RBC 4.83 M/mm3 (3.60-5.2); RDW 14.9 % (11.6-15.6)
[2023-06-13 16:27] LABS: INR 0.95 (0.83-1.09)
[2023-06-13 16:30] LABS: ACTIVATED PTT 32.1 SECONDS (25.2-36.5)
[2023-06-13 16:32] LABS: POTASSIUM 4.8 mmol/L (3.5-5.1)
[2023-06-13 16:34] LABS: CALCIUM 7.8 mg/dL (8.5-10.1)
[2023-06-13 16:35] LABS: ALBUMIN 3.4 g/dl (3.4-5.0); BLOOD UREA NITROGEN 19.5 mg/dL (7-18)
[2023-06-13 16:38] LABS: CREATININE 0.5 mg/dL (0.55-1.3)
[2023-06-13 16:40] LABS: BILIRUBIN,TOTAL 0.3 mg/dL (0.2-1)
== END 2023-06-13 17:53 | disposition home or self-care (01) ==
LOC: JER 13:50
PROC: 3E033NZ Introduction of Analgesics, Hypnotics, Sedatives into Peripheral Vein, Percutaneous Approach (ICD-10-PCS; principal; 2023-06-13)
DX: O26.891 Other specified pregnancy related conditions, first trimester (principal); R10.2 Pelvic and perineal pain; Z3A.01 Less than 8 weeks gestation of pregnancy
CPT/HCPCS: 36415; 76817-TC; 80053; 81003; 84702; 85025; 85610; 85730; 87086; 87491; 87591; 96374; 99284-25; J0131

== ENCOUNTER 2023-06-15 11:47 | Emergency (ER) | payer OTHER ==
[2023-06-15 11:53] VITALS: BP 114/64; PULSE 93; RESP 18; TEMP 98.9; BMI 34.2
== END 2023-06-15 14:41 | disposition home or self-care (01) ==
LOC: JER 11:47
DX: Z32.01 Encounter for pregnancy test, result positive (principal); Z3A.01 Less than 8 weeks gestation of pregnancy
CPT/HCPCS: 36415; 84702; 86850; 86900; 86901

== ENCOUNTER 2023-07-23 21:16 | Emergency (ER) | payer OTHER ==
[2023-07-23 21:21] VITALS: BP 109/61; PULSE 105; RESP 18; TEMP 98.3; BMI 35.4
[2023-07-23] MEDS: ACETAMINOPHEN 325 MG TABLET (FP) PO ONE (22:10)
[2023-07-23 22:11] LABS: URINE APPEARANCE CLEAR; URINE BILIRUBIN NEGATIVE (NEGATIVE); URINE COLOR YELLOW; URINE GLUCOSE (UA) NEGATIVE (NEGATIVE); URINE KETONE NEGATIVE (NEGATIVE); URINE LEUK ESTERASE NEGATIVE (NEGATIVE); URINE NITRITE NEGATIVE (NEGATIVE); URINE PROTEIN NEGATIVE (NEGATIVE); URINE UROBILINOGEN 0.2 mg/dL (0.2-1.0)
== END 2023-07-23 23:27 | disposition home or self-care (01) ==
LOC: JER 21:16
DX: O26.891 Other specified pregnancy related conditions, first trimester (principal); R10.12 Left upper quadrant pain; R10.32 Left lower quadrant pain; R10.2 Pelvic and perineal pain; R11.0 Nausea; Z3A.10 10 weeks gestation of pregnancy
CPT/HCPCS: 76801-TC; 81003; 87077; 87086; 99284-25

== ENCOUNTER 2023-11-02 14:58 | Emergency (ER) | payer OTHER ==
[2023-11-02 15:05] VITALS: BP 107/71; PULSE 109; RESP 18; TEMP 98.7; BMI 38.9
== END 2023-11-02 16:30 | disposition home or self-care (01) ==
LOC: JERFT 14:58
DX: O09.522 Supervision of elderly multigravida, second trimester (principal); O99.891 Other specified diseases and conditions complicating pregnancy; R09.81 Nasal congestion; R05.9 Cough, unspecified; B34.9 Viral infection, unspecified; J02.9 Acute pharyngitis, unspecified; Z3A.00 Weeks of gestation of pregnancy not specified; Z20.822 Contact with and (suspected) exposure to COVID-19
CPT/HCPCS: 0241U-QW; 99283-25

== ENCOUNTER 2024-11-25 23:02 | Observation (INO) | payer OTHER ==
[2024-11-25 23:18] VITALS: BMI 37.7
[2024-11-26] MEDS: cefOXitin SODIUM 1 GM VIAL (RESTRICTED TO ID) IVPB ONE
[2024-11-26] MEDS ORDERED: FAMOTIDINE 20 MG/50 ML IVPB 20 MG/50 ML MG IVPB ONE (00:31)
[2024-11-26] MEDS ORDERED: ACETAMINOPHEN INJECTION 100 ML ONE ×2 (00:31→16:09)
[2024-11-26] MEDS: ACETAMINOPHEN 1000 MG/100 ML BAG IVPB ONE ×2 (00:53→17:49)
[2024-11-26] MEDS: FAMOTIDINE 20 MG/50 ML IVPB 20 MG/50 ML MG IVPB ONE (00:53)
[2024-11-26 00:59] LABS: ABSOLUTE IMMATURE GRANULOCYTES 0.10 x10^3/uL (0.0-0.031); BASOPHILS # 0.06 x10^3/uL (0.01-0.08); EOSINOPHIL % 1.5 % (0.7-5.8); EOSINOPHILS # 0.26 x10^3/uL (0.04-0.36); MCHC 31.9 g/dl (32.2-35.5); MEAN CELL VOLUME 81.7 fl (79.4-94.8); MEAN PLT VOLUME 9.8 fl (9.4-12.3); MONOCYTE # 1.24 x10^3/uL (0.24-0.86); MONOCYTE % 7.2 % (4.7-12.5); RDW 13.8 % (12.1-16.8)
[2024-11-26 01:09] LABS: INR 1.01 (0.83-1.09); PROTHROMBIN TIME (PATIENT) 11.1 SEC (9.7-13.0)
[2024-11-26 01:11] LABS: ACTIVATED PTT 36.0 SECONDS (25.2-36.5)
[2024-11-26 01:18] LABS: GLUCOSE,RANDOM 100.0 mg/dL (74-106)
[2024-11-26 01:19] LABS: TOT PROT 6.6 g/dl (6.4-8.2)
[2024-11-26 01:20] LABS: CO2 24.0 mmol/L (21-32)
[2024-11-26 01:21] LABS: ALK PHOS 143.0 U/L (40-150)
[2024-11-26 01:24] LABS: CREATININE 0.48 mg/dL (0.55-1.3); SGOT/AST 159.0 U/L (5-34); SGPT/ALT 82.0 U/L (0-55)
[2024-11-26 01:40] LABS: HCV DIAGNOSTIC IN-HOUSE W/RFLX NON-REACTIVE (NONREACTIVE); HIV INTERPRETATION NEGATIVE (NEGATIVE)
[2024-11-26] MEDS ORDERED: PIPERACILLIN/TAZOB 3.375 GM 3.375 GM/50 ML BAG IVPB ONE (01:41)
[2024-11-26] MEDS: PIPERACILLIN/TAZOB 3.375 GM 3.375 GM in DEXTROSE 5%-WATER - 50 ML IVPB ONE (01:51)
[2024-11-26] MEDS ORDERED: ONDANSETRON 4 MG/2 ML VIAL IVPUSH PRN ×2 (02:04→15:35)
[2024-11-26] MEDS: DEXTROSE 5%-0.45% SALINE 1,000 ML IV SCH (05:09)
[2024-11-26] MEDS ORDERED: ACETAMINOPHEN 1000 MG/100 ML BAG IVPB PRN (06:00)
[2024-11-26 08:20] LABS: ABSOLUTE IMMATURE GRANULOCYTES 0.03 x10^3/uL (0.0-0.031); BASOPHILS # 0.06 x10^3/uL (0.01-0.08); EOSINOPHIL % 2.8 % (0.7-5.8); EOSINOPHILS # 0.29 x10^3/uL (0.04-0.36); MCHC 31.8 g/dl (32.2-35.5); MEAN CELL VOLUME 82.5 fl (79.4-94.8); MEAN PLT VOLUME 10.3 fl (9.4-12.3); MONOCYTE # 0.61 x10^3/uL (0.24-0.86); MONOCYTE % 5.8 % (4.7-12.5); RDW 13.7 % (12.1-16.8)
[2024-11-26 08:41] LABS: GLUCOSE,RANDOM 81.0 mg/dL (74-106)
[2024-11-26 08:43] LABS: CO2 27.0 mmol/L (21-32)
[2024-11-26 08:47] LABS: CREATININE 0.56 mg/dL (0.55-1.3)
[2024-11-26] MEDS: PIPERACILLIN/TAZOB 3.375 GM 3.375 GM in DEXTROSE 5%-WATER - 50 ML IVPB SCH (09:37)
[2024-11-26] MEDS ORDERED: BUPIVACAINE HCL/PF 0.25% (2.5MG/ML) 10 ML VIAL ONE (12:54)
[2024-11-26] MEDS ORDERED: HEPARIN NA (PORCINE) 5,000 UNITS/ML 1ML VIAL ONE (12:54)
[2024-11-26] MEDS ORDERED: INDOCYANINE GREEN 25 MG/10 ML VIAL IVPUSH ONE (13:07)
[2024-11-26] MEDS ORDERED: cefOXitin SODIUM 2 GM VIAL (RESTRICTED TO ID) IVPB ONE (13:07)
[2024-11-26] MEDS ORDERED: PROPOFOL 40 ML ONE (13:45)
[2024-11-26] MEDS ORDERED: MIDAZOLAM HCL 2 MG/2 ML SINGLE DOSE VIAL ONE (13:45)
[2024-11-26] MEDS ORDERED: ROCURONIUM BROMIDE 50 MG/5 ML SYRINGE ONE (13:47)
[2024-11-26] MEDS ORDERED: SUCCINYLCHOLINE CHLORIDE 200 MG/10 ML SYRINGE ONE (13:47)
[2024-11-26] MEDS ORDERED: DEXAMETHASONE SOD PHOSPHATE 4 MG/1 ML VIAL ONE (13:57)
[2024-11-26] MEDS: BUPIVACAINE HCL/PF 0.25% (2.5MG/ML) 10 ML VIAL IJ ONE ×2 (14:17)
[2024-11-26] MEDS ORDERED: NEOSTIGMINE METHYLSULFATE 0.5 MG/1 ML - 10 ML MDV ONE (14:50)
[2024-11-26] MEDS ORDERED: PROPOFOL 20 ML ONE (15:04)
[2024-11-26] MEDS ORDERED: ONDANSETRON 4 MG/2 ML VIAL ONE (15:22)
[2024-11-26] MEDS: ONDANSETRON 4 MG/2 ML VIAL IVPUSH PRN (15:23)
[2024-11-26] MEDS ORDERED: PROMETHAZINE HCL 25 MG/1 ML VIAL IVPB PRN ×2 (15:35→16:04)
[2024-11-26] MEDS: LACTATED RINGERS SOLUTION 1,000 ML IV SCH ×2 (16:00→17:49)
[2024-11-26] MEDS: KETOROLAC TROMETHAMINE 30 MG/1 ML VIAL IVPUSH ONE (16:26)
[2024-11-26] MEDS ORDERED: KETOROLAC TROMETHAMINE 30 MG/1 ML VIAL ONE (16:26)
[2024-11-27] MEDS: ACETAMINOPHEN 1000 MG/100 ML BAG IVPB PRN (02:13)
[2024-11-27 07:43] LABS: ABSOLUTE IMMATURE GRANULOCYTES 0.06 x10^3/uL (0.0-0.031); BASOPHILS # 0.02 x10^3/uL (0.01-0.08); EOSINOPHIL % 0.2 % (0.7-5.8); EOSINOPHILS # 0.03 x10^3/uL (0.04-0.36); MCHC 31.2 g/dl (32.2-35.5); MEAN CELL VOLUME 81.5 fl (79.4-94.8); MEAN PLT VOLUME 10.1 fl (9.4-12.3); MONOCYTE # 0.67 x10^3/uL (0.24-0.86); MONOCYTE % 4.4 % (4.7-12.5); RDW 13.5 % (12.1-16.8)
[2024-11-27 08:29] LABS: GLUCOSE,RANDOM 113.0 mg/dL (74-106); TOT PROT 6.6 g/dl (6.4-8.2)
[2024-11-27 08:30] LABS: CO2 25.0 mmol/L (21-32)
[2024-11-27 08:35] LABS: CREATININE 0.58 mg/dL (0.55-1.3); SGOT/AST 44.0 U/L (5-34); SGPT/ALT 66.0 U/L (0-55)
[2024-11-27 11:28] LABS: ALK PHOS 129.0 U/L (40-150)
[2024-11-28 01:18] VITALS: RESP 18
[2024-11-28 07:38] LABS: ABSOLUTE IMMATURE GRANULOCYTES 0.05 x10^3/uL (0.0-0.031); BASOPHILS # 0.04 x10^3/uL (0.01-0.08); EOSINOPHIL % 1.4 % (0.7-5.8); EOSINOPHILS # 0.20 x10^3/uL (0.04-0.36); MCHC 31.2 g/dl (32.2-35.5); MEAN CELL VOLUME 83.7 fl (79.4-94.8); MEAN PLT VOLUME 10.1 fl (9.4-12.3); MONOCYTE # 0.82 x10^3/uL (0.24-0.86); MONOCYTE % 5.6 % (4.7-12.5); RDW 13.9 % (12.1-16.8)
[2024-11-28 07:56] LABS: GLUCOSE,RANDOM 81.0 mg/dL (74-106); TOT PROT 6.2 g/dl (6.4-8.2)
[2024-11-28 07:57] LABS: CO2 25.0 mmol/L (21-32)
[2024-11-28 08:02] LABS: CREATININE 0.53 mg/dL (0.55-1.3); SGOT/AST 24.0 U/L (5-34); SGPT/ALT 45.0 U/L (0-55)
[2024-11-28 08:10] LABS: ALK PHOS 113.0 U/L (40-150)
[2024-11-28] MEDS ORDERED: PIPERACILLIN/TAZOB 3.375 GM 3.375 GM in DEXTROSE 5%-WATER - 50 ML IVPB SCH (10:00)
[2024-11-28 11:33] VITALS: BP 135/78; PULSE 81; TEMP 98.5
== END 2024-11-28 13:30 | disposition home or self-care (01) ==
LOC: JER 23:02 → JERBED 11-26 01:38 → J7W 11-26 03:53
PROVIDERS: ADMIT Internal Medicine; ATTEND Internal Medicine
PROC: 3E033GC Introduction of Other Therapeutic Substance into Peripheral Vein, Percutaneous Approach (ICD-10-PCS; 2024-11-26)
PROC: 3E0337Z Introduction of Electrolytic and Water Balance Substance into Peripheral Vein, Percutaneous Approach (ICD-10-PCS; 2024-11-26)
PROC: 3E0333Z Introduction of Anti-inflammatory into Peripheral Vein, Percutaneous Approach (ICD-10-PCS; 2024-11-26)
PROC: 0FT44ZZ Resection of Gallbladder, Percutaneous Endoscopic Approach (ICD-10-PCS; principal; 2024-11-26 12:00)
DX: K81.0 Acute cholecystitis (principal); E66.9 Obesity, unspecified; F41.8 Other specified anxiety disorders; R10.13 Epigastric pain; F17.210 Nicotine dependence, cigarettes, uncomplicated; F14.90 Cocaine use, unspecified, uncomplicated; Z86.19 Personal history of other infectious and parasitic diseases
CPT/HCPCS: 36415; 76705-TC; 80048; 80053; 83690; 84703; 85025; 85610; 85730; 86803; 86850; 86900; 86901; 87040; 87389; 88304-TC; 94760; 96361; 96365; 96366; 96368; 96375; 96376; 99285-25; G0378